=== PATIENT | male | born 1955 | race Caucasian/White ===

== ENCOUNTER → 2024-07-28 19:44 | Outpatient (REF) | payer OTHER, SELFPAY | LOC: MRI 3T 19:44 | PROVIDERS: ATTENDING PHYSICIAN Specialist; FAMILY PHYSICIAN Internal Medicine | DX: R97.20 Elevated prostate specific antigen [PSA] (principal) | CPT/HCPCS: 72197; A9575 ==

== ENCOUNTER → 2025-04-25 11:03 | Outpatient (REF) | payer OTHER, SELFPAY | LOC: RCS 11:03 | PROVIDERS: ATTENDING PHYSICIAN Nurse Practitioner; FAMILY PHYSICIAN Internal Medicine; REFERRING PHYSICIAN Hospitalist | DX: I49.3 Ventricular premature depolarization (principal); I10 Essential (primary) hypertension; I77.810 Thoracic aortic ectasia | CPT/HCPCS: 93306 ==